=== PATIENT | male | born 1955 | race Caucasian/White ===

== ENCOUNTER → 2016-12-30 | Outpatient (CLI) | payer BC ==
--- NOTE | 2016-12-30 11:20 | RAD ---
PROCEDURE MRI brain without contrast. HISTORY Dizziness, concussion, memory changes TECHNIQUE Multiplanar, multi sequential non contrast MR imaging was performed of the brain. COMPARISON None FINDINGS There is no restricted diffusion suggestive of a recent infarct or cytotoxic edema. There is no intra-axial mass effect, midline shift, extra-axial fluid collection. Ventricles, sulci, cisterns are within normal limits in size and configuration. 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 There is a tiny focus of nonspecific likely gliosis of the left temporal white matter. Otherwise there is no significant focal signal abnormality including hemosiderin deposition of the brain parenchyma. There is preservation of the major arterial intracranial flow voids at the skull base. Mastoid air cells are overall aerated, minimal focus of fluid on the left. There has been lens surgery bilaterally. There is patchy mild ethmoid air cell and very mild maxillary sinus mucosal thickening. Cerebellar tonsils are normal in location. There is adequate preservation of marrow signal of the clivus. IMPRESSION 1. Other than old lacunar infarcts of the right cerebellum and tiny focus of likely nonspecific gliosis of the left temporal white matter, there is no significant intracranial abnormality. Electronically signed by: Magnus Soares MD (Dec 30, 2016 11:18:18)
== END | disposition home or self-care (01) ==
LOC: MRI 10:02
PROVIDERS: ATTEND Physician Assistant Medical
DX: S06.0X9D Concussion with loss of consciousness of unspecified duration, subsequent encounter (principal); R42 Dizziness and giddiness; R41.3 Other amnesia; X58.XXXD Exposure to other specified factors, subsequent encounter
CPT/HCPCS: 70551

== ENCOUNTER → 2021-06-20 | Outpatient (CLI) | payer MEDICARE ==
--- NOTE | 2021-06-20 17:16 | KCIC ---
MRI of the lumbar spine without contrast 06/20/2021 CLINICAL HISTORY: Low back pain which radiates down the right leg. Weakness. TECHNIQUE: Unenhanced T1-weighted and T2-weighted sagittal and axial and inversion recovery sagittal images of the lumbar spine were obtained. FINDINGS: Minimal S-shaped curvature of the thoracolumbar spine is seen. Degenerative signal changes are seen involving all the disks of the lower thoracic and throughout the lumbar spine. 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 Degenerative signal changes are seen within the marro w surrounding these discs. Loss of height of the L4-5 and L5-S1 discs is noted. The conus medullaris is normal morphology, position, and signal characteristics. At the L1-2 disc space there is a minimal generalized disc bulge. Degenerative changes are seen invol ving the facet joints bilaterally. There is mild ligament flavum hypertrophy bilaterally. These findi ngs do not result in significant central spinal canal or neural foraminal stenosis. At the L2-3 disc space there is a mild to moderate generalized disc bulge. Superimposed on the disc b ulge is a left paracentral/lateral focal disc protrusion. This measures 6 mm in AP diameter. Degenera tive changes are seen involving the facet joints bilaterally. There are small facet joint effusions. There is mild ligamentum flavum hypertrophy bilaterally. These findings when combined do not result i n significant central spinal canal stenosis. Mild left neural foraminal stenosis is seen. The right n eural foramen is patent. At the L3-4 disc space there is a mild to moderate generalized disc bulge. Degenerative changes are s een involving the facet joints bilaterally. There is mild ligamentum flavum hypertrophy bilaterally. These findings when combined do not result in significant central spinal canal or neural foraminal st enosis. At the L4-5 disc space there is a mild generalized disc bulge. Degenerative changes are seen involvin g the facet joints bilaterally. There is mild ligament flavum hypertrophy bilaterally. These findings when combined do not result in significant central spinal canal stenosis. Mild bilateral neural fora chitra stenosis is seen. At the L5-S1 disc space there is a mild generalized disc bulge. Degenerative changes are seen involvi ng the facet joints bilaterally. These findings do not result in significant central spinal canal or neural foraminal stenosis. IMPRESSION: Degenerative changes are seen throughout the lumbar spine. These findings do not result i n significant central spinal canal stenosis at any level. Mild left neural foraminal stenosis is seen at L2-3. Mild bilateral neural foraminal stenosis is seen at L4-5. Electronically signed by: Garret Espitia MD (06/20/2021 5:14 PM) [id number]
== END ==
LOC: KCIC MRI 14:04
PROVIDERS: ATTEND Physician Assistant Medical
DX: M47.817 Spondylosis without myelopathy or radiculopathy, lumbosacral region (principal); M51.27 Other intervertebral disc displacement, lumbosacral region; M48.061 Spinal stenosis, lumbar region without neurogenic claudication; M43.8X5 Other specified deforming dorsopathies, thoracolumbar region; D18.09 Hemangioma of other sites
CPT/HCPCS: 72148